=== PATIENT | male | born 1995 | race Caucasian/White ===

== ENCOUNTER 2020-07-11 19:54 | Emergency (ER) | payer OTHER ==
[2020-07-11] MEDS ORDERED: Fluorescein 1 MG Ophth Strip EYELF ONE (20:06)
[2020-07-11] MEDS ORDERED: Proparacaine 0.5% Ophth Soln 15 ML Bottle EYELF ONE (20:15)
--- NOTE | 2020-07-11 20:24 | EDM.PDOC ---
ED HPI GENERAL MEDICAL PROBLEM - General Chief Complaint: Eye Problems Stated Complaint: LT EYE PROBLEMS Time Seen by Provider: 07/11/20 20:04 Source of Information: Reports: Patient, RN Notes Reviewed History Limitations: Reports: No Limitations - History of Present Illness INITIAL COMMENTS - FREE TEXT/NARRATIVE: Patient is a 24-year-old male who presents to the ED for the evaluation of a left eye injury. Patient notes he was cutting 10 last night, and he feels like he got something lodged to his left eye. He believes that it is in the outer lower quadrant of his eye as this seems to be the most irritated. He believes he is up-to-date on his tetanus vaccine. He notes no blurry vision or double vision, he states the eye does water at times. The whole eye itself is erythematous and does look irritated. He has normal vision otherwise. He has tried flushing the eye with water prior to arrival but has been unsuccessful. Patient denies any other sick-like symptoms, fever/chills, cough/shortness of breath, nausea/vomiting/diarrhea. 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 [No Known Home Meds] 07/11/20 [History] Past Medical History - Past Health History Medical/Surgical History: Denies Medical/Surgical History - Past Surgical History Musculoskeletal Surgical History: Reports: Arthroscopic Knee ED ROS GENERAL - Review of Systems Review Of Systems: Comprehensive ROS is negative, except as noted in HPI. ED EXAM GENERAL W FULL EYE - Physical Exam Exam: See Below Exam Limited By: No Limitations General Appearance: Alert, WD/WN, No Apparent Distress Eye Exam: Right Eye: Normal Inspection, Left Eye: Conjunctival Injection, Foreign Body (noted to the upper right quadrant, this does appear to be a metallic foreign body.), Bilateral Eye: PERRL Visual Acuity (R) 20/: 20 Visual Acuity (L) 20/: 20 With Correction: No Eyelids: Bilateral: Normal Appearance Conjunctiva & Sclera: Right: Normal Appearance, Left: Injected Cornea Exam: Right: Normal Appearance, Left: Foreign Body (metallic foreign body to right upper quadrant), Examined with Flourescein (there was only uptake in the area of concern of the foreign body.) Extraocular Movements: Bilateral: Intact Pupils: Normal Accommodation Pupillary Size: Bilateral: 3 mm Pupillary Reaction: Bilateral: Brisk Respiratory/Chest: No Respiratory Distress, Lungs Clear, Normal Breath Sounds, No Accessory Muscle Use, Chest Non-Tender Cardiovascular: Normal Peripheral Pulses, Regular Rate, Rhythm, No Murmur Neurological: Alert, Oriented, Normal Cognition, No Motor/Sensory Deficits Psychiatric: Normal Affect, Normal Mood Skin Exam: Warm, Dry, Intact, Normal Color, No Rash ED EYE w/ Add Procedure - Eye Procedure Alcaine Drops Administered: Yes Eye FB Removal: Removal w/ Cotton Swab Antibiotic Oinment/Drps Admin: Left Eye (erythromycin ointment applied.) Progress: 1 attempt made at using a flat eye spud and wet cotton swab, this was unsuccessful. The patient also cannot focus well enough and cannot prevent his eye movements for me to feel comfortable at further attempts. Dr. Potter is unfortunately busy with a critical patient and cannot help at this time. I will refer him to Dr. William Stover at the eye clinic located in [facility]. They do have office hours from 9AM-4PM tomorrow. Course - Vital Signs Last Recorded V/S: Last Vital Signs Temp 98.0 F 07/11/20 20:56 Pulse 67 07/11/20 20:56 Resp 20 07/11/20 20:56 BP 124/73 07/11/20 20:56 Pulse Ox 96 07/11/20 20:56 - Orders/Labs/Meds Orders: Active Orders 24 hr Category Date Time Status Ketorolac [Acular 0.5% Ophth Soln] Med 07/11/20 21:03 Active 1 ml EYELF QID Medication Orders Ketorolac Tromethamine (Acular 0.5% Ophth Soln) 1 ml EYELF QID [facility] Meds: Medications Generic Name Dose Route Start Last Admin Trade Name Freq PRN Reason Stop Dose Admin Ketorolac Tromethamine 1 ml 07/11/20 21:03 Acular 0.5% Ophth Soln EYELF QID NYLA Discontinued Medications Generic Name Dose Route Start Last Admin Trade Name Freq PRN Reason Stop Dose Admin Erythromycin 1 gm 07/11/20 21:03 Erythromycin 0.5% Ophth Oint EYELF 07/11/20 21:04 ONETIME ONE Fluorescein Sodium 1 mg 07/11/20 20:06 07/11/20 20:48 Ful-Elizabeth EYELF 07/11/20 20:07 1 mg ONETIME ONE Administration Proparacaine HCl 2 ml 07/11/20 20:15 07/11/20 20:07 Proparacaine 0.5% Ophth Soln EYELF 07/11/20 20:16 2 drop ONETIME ONE Administration Departure - Departure Time of Disposition: 20:59 Disposition: Home, Self-Care 01 Condition: Good Clinical Impression: Eye foreign body Qualifiers: Encounter type: initial encounter Laterality: left Qualified Code(s): T15.92XA - Foreign body on external eye, part unspecified, left eye, initial encounter - Discharge Information *PRESCRIPTION DRUG MONITORING PROGRAM REVIEWED*: No *COPY OF PRESCRIPTION DRUG MONITORING REPORT IN PATIENT [place]: No Instructions: Eye Foreign Body, [id number] Referrals: PCP,None [Primary Care Provider] - Forms: ED Department Discharge Additional Instructions: You have been evaluated in the ED today for a foreign body sensation in your eye. You did have a metal foreign body in your upper inner left eye. You were given some pain drops for your eye, ketorolac, please instill 2 drops to the affected eye every 6 hours at least for the next 24 hours . You may use this up to 2-3 days if needed. Please use the erythromycin ointment, 1 cm ribbon to the lower affected eyelid margin 4 times daily for the next 3-5 days. Recommend that you follow up with optometry [facility] for a more thorough evaluation and to make sure that everything is healing appropriately. Dr William Stover in the Eye clinic at [facility] does appear to have hours that he is open on Tuesday from 9AM-4PM. Please call [phone] right away tomorrow morning to obtain an appointment for removal of the foreign body. Please return to the ED if your symptoms should change or worsen. Sepsis Event Note (ED) - Focused Exam Vital Signs: Vital Signs Temp Pulse Resp BP Pulse Ox 07/11/20 20:56 98.0 F 67 20 124/73 96 - My Orders Last 24 Hours: My Active Orders 07/11/20 21:03 Ketorolac [Acular 0.5% Ophth Soln] 1 ml EYELF QID - Assessment/Plan Last 24 Hours: My Active Orders 07/11/20 21:03 Ketorolac [Acular 0.5% Ophth Soln] 1 ml EYELF QID
[2020-07-11] MEDS ORDERED: Ketorolac 0.5% Ophth Soln 5 ML Bottle EYELF SCH (21:03)
[2020-07-11] MEDS ORDERED: Erythromycin Base 0.5% Ophth Oint 1 GM Tube EYELF ONE (21:03)
== END 2020-07-11 21:30 | disposition home or self-care (01) ==
LOC: JD.ED 19:54
DX: T15.92XA Foreign body on external eye, part unspecified, left eye, initial encounter (principal)
CPT/HCPCS: 99283; A9270